=== PATIENT | female | born 1980 | race African-American/Black ===

== ENCOUNTER 2018-09-23 22:02 | Emergency (ER) | payer MEDICAID ==
[~2018-09-23] VITALS: Ht 172.7 cm; Wt 87.1 kg
--- NOTE | 2018-09-24 00:10 | NUR ---
PATIENT AMBULATORY WITH STEADY GAIT WITH NO DISTRESS NOTED. A/OX3. SPEAKING WITH CLEAR SPEECH
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
--- NOTE | 2018-09-24 00:49 | NUR ---
Patient eloped from facility. ER physician notified.
== END 2018-09-24 00:50 | disposition left against medical advice (07) ==
LOC: ER 22:05
DX: F10.129 Alcohol abuse with intoxication, unspecified (principal); E78.5 Hyperlipidemia, unspecified; Z88.8 Allergy status to other drugs, medicaments and biological substances; V47.5XXA Car driver injured in collision with fixed or stationary object in traffic accident, initial encounter; Y93.89 Activity, other specified; Y92.89 Other specified places as the place of occurrence of the external cause; Y99.8 Other external cause status; Y90.8 Blood alcohol level of 240 mg/100 ml or more
CPT/HCPCS: 36415; 70450; 84702; 99284; G0480; A4663